=== PATIENT | male | born 1975 | race Caucasian/White ===

== ENCOUNTER → 2017-02-18 | Outpatient (CLI) | payer OTHER ==
[~2017-02-18] MED LIST: METH10TA PO
--- NOTE | 2017-02-19 08:25 | DI ---
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 Indication: The patient is a 41-year-old male with a history of long-standing Graves' disease and more recently development of a toxic multinodular goiter. Laboratory values from October 28, 2016 include a TSH of 8.9 uIU/mL and free T4 of 0.89 ng/dL. He had a thyroid uptake of % on 48.2. The scan demonstrated findings of a hyperfunctioning multinodular goiter. Please see the separate dictation of that scan. Technique: 19.9 mCi of I-131 in capsule form was consumed orally without complication. Findings: The patient's records were reviewed. The risks and benefits of receiving radioactive iodine were discussed with the patient. Verbal and written radiation precautions were provided and all questions were answered. The patient gave both verbal and written consent for the treatment. A "time-out" was taken to verify the patient's name, birthdate, and indication for receiving radioactive iodine therapy prior to administering the radioactive iodine. The patient orally consumed 19.9 mCi of I-131 in capsule form without complication. Impression: 1. I-131 treatment for Graves' disease and toxic multinodular goiter. 2. The patient received 19.9 mCi of I-131 in capsule form. 3. Verbal and written radiation precautions were provided. 4. The patient will followup with his referring physician for continued observation and treatment. .
== END ==
LOC: IMA 16:24
PROVIDERS: ATTEND Internal Medicine Endocrinology, Diabetes & Metabolism
DX: E05.20 Thyrotoxicosis with toxic multinodular goiter without thyrotoxic crisis or storm (principal)
CPT/HCPCS: 79005; A9517